=== PATIENT | female | born 1940 | race Caucasian/White ===

== ENCOUNTER 2019-04-13 16:28 | Emergency (ER) | payer MEDICARE ==
[2019-04-13] MEDS ORDERED: NS 0.9% 1000 ML** 1,000 ML IV ONE (20:01)
--- NOTE | 2019-04-13 20:03 | ED ---
Abdominal Pain/Female - HPI Summary HPI Summary: 78 year old female presents to the ED with a chief complaint of a mass on her abdomen that she noticed 5 months ago but has gotten bigger and has become painful in the last month. The pain is dull with a severity of 2/10. She saw a gerontologist yesterday for the mass but received no diagnosis. She had an ultrasound this morning and was told to come to [facility]. She denies N/V/D, fever , weight loss, diaphoresis, and difficulty urinating. History of bladder incontinence. - History of Current Complaint Chief Complaint: EDAbdPain Stated Complaint: BUMP ON GROIN AREA PER Time Seen by Provider: 04/13/19 19:49 Hx Obtained From: Patient ?: No Onset/Duration: Lasting Weeks, Still Present, Worse Since - 1 month ago, pain developed Timing: Weeks Severity Initially: Mild Severity Currently: None Pain Intensity: 2 Pain Scale Used: 0-10 Numeric Location: Discrete At: RLQ Radiates: No Character: Dull Associated Signs and Symptoms: Negative: Diaphoresis, Fever, Urinary Symptoms, Nausea, Vomiting, Diarrhea, Other: - Denies weight loss Allergies/Adverse Reactions: Allergies Allergy/AdvReac Type Severity Reaction Status Date / Time diphenhydramine Allergy See Comment Verified 04/13/19 16:35 [From Benadryl] Sulfa (Sulfonamide Allergy See Comment Verified 04/13/19 16:35 Antibiotics) Home Medications: Home Medications Apixaban [Eliquis] 5 mg PO DAILY 04/13/19 [History Confirmed 04/13/19] Losartan TAB* [Cozaar TAB*] 50 mg PO QAM 04/13/19 [History Confirmed 04/13/19] Magnesium Oxide [Magnesium] 250 mg PO DAILY 04/13/19 [History Confirmed 04/13/19 ] Mirabegron (NF) [Myrbetriq (NF)] 25 mg PO DAILY 04/13/19 [History Confirmed 01/22] Omeprazole (Nf) [Prilosec (NF)] 40 mg PO DAILY 04/13/19 [History Confirmed 04/13] Oxybutynin XL TAB* [Ditropan XL TAB*] 15 mg PO DAILY 04/13/19 [History Confirmed 04/13/19] Potassium Chloride 10 meq PO DAILY 04/13/19 [History Confirmed 04/13/19] Sertraline* [Zoloft*] 50 mg PO DAILY 04/13/19 [History Confirmed 04/13/19] Simvastatin (NF) [Zocor (NF)] 40 mg PO DAILY 04/13/19 [History Confirmed ] amLODIPine TAB* [Norvasc 5 mg TAB*] 5 mg PO DAILY 04/13/19 [History Confirmed ] PMH/Surg Hx/FS Hx/Imm Hx History: Reports: Other Problems/Disorders - urinary incontinence - Surgical History Surgery Procedure, Year, and Place: HYSTERECTOMY '81 W/APPY Infectious Disease History: No Infectious Disease History: Denies: Traveled Outside the [place] in Last 30 Days - Social History Alcohol Use: None Substance Use Type: Reports: None Smoking Status (MU): Former Smoker Review of Systems - ROS Summary Review of Systems Summary: Home Medications Medication Instructions Recorded Confirmed Type Furosemide TAB* 11/05/14 11/05/14 History Omeprazole CAP* 11/05/14 11/05/14 History Potassium Chlor TAB* 11/05/14 11/05/14 History Simvastatin 11/05/14 11/05/14 History amLODIPine TAB* 11/05/14 11/05/14 History Negative: Fever, Skin Diaphoresis Positive: Abdominal Pain. Negative: Vomiting, Diarrhea, Nausea Positive: no symptoms reported All Other Systems Reviewed And Are Negative: Yes Physical Exam - Summary Physical Exam Summary: General: Well-developed, Obese, elderly female. No acute distress. HEENT: Normocephalic, Atraumatic. Eyes: Conjuctiva normal, PERRL. Ears: TMs within normal limits. Nares: (-) discharge, (-) erythema. Oropharynx: Clear, mucous membranes moist, (-) exudates. Neck: Soft, FROM, (-) lymphadenopathy, (-) thyromegaly, (-) JVD. Cardiovascular: Normal sinus rhythm, (-) murmur. Lungs: Clear to auscultation bilaterally (-) wheezes, (-) rales, (-) rhonchi. Abdomen: Soft, non-distended, (-) organomegaly, normal bowel sounds. Mild tenderness in the right middle abdomen. Back: (-) CVA tenderness Extremities: No edema. Skin: Warm, dry, (-) rash. Neuro: Alert and oriented x3, no focal deficits. Psychiatric: Mood normal, affect normal. Triage Information Reviewed: Yes Vital Signs On Initial Exam: Initial Vitals Temp Pulse Resp BP Pulse Ox 98.3 F 71 16 147/89 95 04/13/19 16:34 04/13/19 16:34 04/13/19 16:34 04/13/19 16:34 04/13/19 16:34 Vital Signs Reviewed: Yes Procedures - Sedation Patient Received Moderate/Deep Sedation with Procedure: No Diagnostics - Vital Signs Vital Signs Temp Pulse Resp BP Pulse Ox 04/13/19 18:41 97.5 F 64 18 155/79 96 04/13/19 16:34 98.3 F 71 16 147/89 95 - Laboratory Result Diagrams: 04/13/19 20:32 04/13/19 20:32 Lab Statement: Any lab studies that have been ordered have been reviewed, and results considered in the medical decision making process. - CT CT Abd CT Interpretation Completed By: Radiologist Summary of CT Findings: The following impressions were made: 1. Periumbilical hernia containing fat. Inflammatory changes within the fat in the periumbilical hernia and in the mesentery/omentum at the base of the hernia. This may represent mesenteric ischemia or inflammation. No walled off fluid collection. 2. No inguinal hernia. Multiple inguinal lymph nodes. No inflammatory changes. An ED physician has reviewed this report. Abdominal Pain Fem Course/Dx - Diagnoses Provider Diagnoses: Periumbilical hernia - Provider Notifications Discussed Care Of Patient With: Dov Peña - Surgery Time Discussed With Above Provider: 23:00 Instructed by Provider To: Other - Spoke to Dr. Peña at 2300. He recommended that the patient follow up with him in the next few days. Discharge ED - Sign-Out/Discharge Documenting (check all that apply): Patient Departure - Discharge - Discharge Plan Condition: Stable Disposition: HOME Patient Education Materials: Umbilical Hernia (ED) Referrals: Dov Peña MD [Medical Doctor] - Additional Instructions: Follow up with Dr. Peña, Surgery, in 2-3 days. Return to the Emergency Department if you experience new or worsening symptoms. - Billing Disposition and Condition Condition: STABLE Disposition: Home - Attestation Statements Document Initiated by Scribe: Yes Documenting Scribe: Brandon Mendoza Provider For Whom Scribe is Documenting (Include Credential): Mirtha Shen MD. Scribe Attestation: Brandon Berman, scribed for Mirtha Shen MD. on 04/14/19 at 0218. Scribe Documentation Reviewed: Yes Provider Attestation: The documentation as recorded by the scribe, Brandon Mendoza accurately reflects the service I personally performed and the decisions made by me, Mirtha Shen MD. Status of Scribe Document: Viewed
[2019-04-13 20:40] LABS: ABS Eosinophils 0.2 10^3/ul (0-0.6); ABS Lymphocytes 2.1 10^3/ul (1.0-4.8); ABS Monocytes 0.5 10^3/ul (0-0.8); Eosinophil % 3.1 %; Hematocrit 39 % (35-47); Hemoglobin 13.1 g/dL (12.0-16.0); Lymphocyte % 35.6 %; Mean Corpuscular HGB Conc 34 g/dL (31-36); Mean Corpuscular Hemoglobin 30 pg (27-31); Mean Corpuscular Volume 89 fL (80-97); Mean Platelet Volume 7.5 fL (7.4-10.4); Platelet Count 214 10^3/uL (150-450); Red Blood Count 4.35 10^6 /uL (3.70-4.87); Red Cell Distribution Width 14 % (10-15); White Blood Count 5.8 10^3/uL (3.5-10.8)
[2019-04-13 20:54] LABS: Albumin 4.5 g/dL (3.2-5.2); Albumin/Globulin Ratio 1.5 (1-3); BUN/Creatinine Ratio 16.2 (8-20); Calcium 9.7 mg/dL (8.6-10.3); EGFR African American 65.8 (>60); EGFR Non-African American 54.4 (>60); Potassium 3.9 mmol/L (3.5-5.0); Total Bilirubin 0.6 mg/dL (0.2-1.0); Total Protein 7.5 g/dL (6.4-8.9)
[2019-04-13 20:55] LABS: INR 1.2 (0.82-1.09)
[2019-04-13] MEDS ORDERED: Iodixanol* (CONTRAST) 320 MG/ML 100 ML SDV IV ONE (21:24)
[2019-04-13 22:47] LABS: Urine Appearance Clear; Urine Bilirubin Negative (Negative); Urine Blood Negative (Negative); Urine Color Straw; Urine Glucose Negative (Negative); Urine Ketones Negative (Negative); Urine Nitrite Negative (Negative); Urine Protein Negative (Negative); Urine Specific Gravity 1.006 (1.010-1.030); Urine Urobilinogen Negative (Negative)
[2019-04-13 23:28] VITALS: BP 169/99
[2019-04-14] MEDS ORDERED: amLODIPine TAB* 5 MG PO SCH (09:00)
[2019-04-14] MEDS ORDERED: Losartan TAB* 25 MG PO SCH (09:00)
[2019-04-14] MEDS ORDERED: Sertraline* 50 MG TAB PO SCH (09:00)
[2019-04-14] MEDS ORDERED: Mirabegron (NF) 25 MG TAB PO SCH (09:00)
[2019-04-14] MEDS ORDERED: Pantoprazole TAB * 40 MG TAB PO SCH (09:00)
[2019-04-14] MEDS ORDERED: NON FORMULARY MED* (Apixaban [Eliquis] 5 MG) PO SCH (09:00)
[2019-04-14] MEDS ORDERED: Potassium Chlor TAB* 10 MEQ TAB.ER PO SCH (09:00)
[2019-04-14] MEDS ORDERED: Atorvastatin* 20 MG TAB PO SCH (09:00)
[2019-04-14] MEDS ORDERED: Oxybutynin XL TAB* 5 MG PO SCH (09:00)
[2019-04-14] MEDS ORDERED: NON FORMULARY MED* (Magnesium Oxide [Magnesium] 250 MG) PO SCH (09:00)
== END 2019-04-13 23:39 | disposition home or self-care (01) ==
LOC: ED 16:28
DX: K42.9 Umbilical hernia without obstruction or gangrene (principal); Z90.710 Acquired absence of both cervix and uterus; Z79.01 Long term (current) use of anticoagulants; Z79.899 Other long term (current) drug therapy; Z88.2 Allergy status to sulfonamides; Z88.8 Allergy status to other drugs, medicaments and biological substances
CPT/HCPCS: 36415; 74177; 80053; 81003; 83605; 85025; 85610; 96360; 96361; 99283; Q9967

== ENCOUNTER → 2019-05-11 10:27 | Day surgery (SDC) | payer MEDICARE ==
[~2019-05-11 10:27] MED LIST: Acetaminophen TAB* 325 MG ONE; Acetaminophen TAB* 325 MG PO ONE; Bacitracin OINTMENT* 0.5% 0.5 oz TUBE ONE; Buffered Lidocaine 1% SYRIN* 1 ML/SYRINGE INTRADERM ONE; Bupivacaine 0.25% EPI 200,000* 30 ML SDV ONE; Dexamethasone IV* 4 MG/ML 1 ML (4 MG) ONE; HYDROmorphone INJ1* 1 MG/ML SYRINGE IV PRN; HYDROmorphone INJ1* 1 MG/ML SYRINGE ONE; Ketorolac INJ* 30 MG/ML 1 ML VIAL ONE; Lactated Ringers 1000 ML Bag* 1,000 ML IV SCH; Metoprolol Tartrate IV* 1 MG/ML 5 ML VIAL ONE; Midazolam* 1 MG/ML 5 ML VIAL (5 MG) ONE; Naloxone* 0.4 MG/ML 1 ML VIAL IV PRN; Ondansetron INJ* 2 MG/ML VIAL IV PRN; Ondansetron INJ* 2 MG/ML VIAL ONE; PROCHLORPERAZINE INJ 5 MG/ML 2 ML VIAL IV PRN; ceFAZolin 2 GM PREMIX in ORs 2 GM/50 ML BAG ONE; fentaNYL* 50 MCG/ML 2 ML VIAL (100 MCG VIAL) ONE; oxyCODONE TAB* 5 MG TAB PO PRN
[2019-05-11 17:35] VITALS: BP 137/66
--- NOTE | 2019-05-12 05:07 | OP ---
AMENDED REPORT TO CORRECT DATE OF OPERATION CC: Dr. Bloom * DATE OF OPERATION: 05/11/19 - [facility] DATE OF : 42 SURGEON: Dov Peña MD INSTALLER TECHNICIAN: Keiry Helm NP ANESTHESIA: General. PRE-OP DIAGNOSIS: Ventral hernia. POST-OP DIAGNOSES: Incisional hernia and umbilical hernia. OPERATIVE PROCEDURE: Open repair of umbilical hernia primarily and incisional hernia repair with mesh. ESTIMATED BLOOD LOSS: Less than 100 cc. FLUIDS: Crystalloid fluid given. Please see Anesthesia report for details. SPECIMEN: Hernia sac. DRAINS: A #7 STAN drain left in the subcutaneous space. COMPLICATIONS: None. DESCRIPTION OF PROCEDURE: The patient was identified in the preoperative area. She was marked appropriately. Consent was signed and she was taken to the operating room and placed on the operating table in the supine position. Preoperative antibiotics were given. Sequential devices were placed on bilateral lower extremities and general anesthesia was induced. The patient's abdomen was prepped and draped in a standard surgical fashion. A time-out was performed. An infraumbilical incision was made. This was deepened down to the root of the umbilicus. The umbilicus skin was isolated and incised off of a small hernia defect. We then were able to extend the dissection inferior to this and a hernia was identified. Hernia sac was isolated from the surrounding subcutaneous fat. It was opened up and omentum was observed. With some difficulty, the omentum was reduced back into the abdomen. There was some bleeding from the omentum during this portion of case. Once the omentum was reduced, the hernia defect was approximately just under 2 cm. Flaps were made laterally and the plan was for mesh repair with primary closure of the fascia. A 4.3-cm plug was opened up. This 2-layer mesh was then placed in the abdomen in the appropriate fashion. Tails were sutured laterally with 0 Vicryl sutures and then the defect was reapproximated with three interrupted Prolene sutures. The umbilical defect, which was just under 1 cm was closed with single Prolene suture. The Prolenes were all #1. The wound was then irrigated. Hemostasis was achieved and the umbilical skin was tacked down with 2-0 Vicryl suture and a #7 STAN drain was brought in through a separate stab incision due to the extent of the dissection to clear away this incisional hernia. The skin was closed with 3-0 Vicryl followed by 4-0 Monocryl subcuticular sutures. Steri-Strips and sterile dressing were applied. The patient tolerated the procedure well and was transferred to the PACU in stable condition. [id number]/[facility] #: [id number] MTDD
== END | disposition home or self-care (01) ==
LOC: OR 10:27
PROVIDERS: ATTEND Surgery
DX: K43.2 Incisional hernia without obstruction or gangrene (principal); I48.0 Paroxysmal atrial fibrillation; I10 Essential (primary) hypertension; J44.9 Chronic obstructive pulmonary disease, unspecified; Z87.891 Personal history of nicotine dependence; K21.9 Gastro-esophageal reflux disease without esophagitis; I77.810 Thoracic aortic ectasia; Z79.01 Long term (current) use of anticoagulants; R06.02 Shortness of breath
CPT/HCPCS: 88302; 93005; A9270-GY; C1781; J0690; J1100; J1170; J1885; J2250; J2405; J3010; J3490

== ENCOUNTER 2021-04-12 13:12 | Inpatient (IN) ==
[2021-04-12] MEDS ORDERED: NS 0.9% 1000 ml BAG 1,000 ML IV.FLUID IV ONE (13:56)
[2021-04-12] MEDS ORDERED: methylPREDNISolone 125 mg 2 ML VIAL IV ONE (14:15)
[2021-04-12] MEDS ORDERED: Albuterol HFA INHALER 8 gm MDI INH ONE (14:17)
[2021-04-12] MEDS ORDERED: Piperacillin/Tazobac ADVAN 3.375 GM in NS 0.9% 100 ml BAG 100 ML IV ONE (14:34)
[2021-04-12 14:43] LABS: ABS Lymphocytes 0.8 10^3/ul (1.0-4.8); ABS Monocytes 1.1 10^3/ul (0-0.8); ABS Neutrophils 6.8 10^3/ul (1.5-7.7); Eosinophil % 0.1 %; Hematocrit 41 % (35-47); Hemoglobin 14.1 g/dL (12.0-16.0); Lymphocyte % 8.8 %; Mean Corpuscular HGB Conc 34 g/dL (31-36); Mean Corpuscular Hemoglobin 30 pg (27-31); Mean Corpuscular Volume 89 fL (80-97); Mean Platelet Volume 8.8 fL (7.4-10.4); Platelet Count 128 10^3/uL (150-450); Red Blood Count 4.64 10^6 /uL (3.70-4.87); Red Cell Distribution Width 14 % (10-15); White Blood Count 8.6 10^3/uL (3.5-10.8)
[2021-04-12 14:53] LABS: Influenza A Molecular Negative (Negative); Influenza B Molecular Negative (Negative); Rapid COVID-19 Molecular Undetected (Undetected)
[2021-04-12 14:56] LABS: ALT 14 U/L (7-52); Albumin 4.2 g/dL (3.2-5.2); Albumin/Globulin Ratio 1.1 (1-3); Alkaline Phosphatase 40 U/L (35-149); Blood Urea Nitrogen 18 mg/dL (6-24); C Reactive Protein 235.76 mg/L (<8.01); CO2 Carbon Dioxide 18 mmol/L (22-32); Chloride 98 mmol/L (101-111); Globulin 3.8 g/dL (2-4); Glucose 143 mg/dL (70-100); Sodium 132 mmol/L (135-145)
[2021-04-12 14:57] LABS: Activated Partial Thrombo Time 35.7 seconds (26.0-38.0); INR 1.99 (0.86-1.15)
[2021-04-12 15:00] LABS: AST 23 U/L (13-39); Anion Gap 16 mmol/L (2-11); Potassium 3.5 mmol/L (3.5-5.0)
[2021-04-12 15:03] LABS: Troponin I 0.27 ng/mL (<0.03)
[2021-04-12 15:07] LABS: Lipase < 10 U/L (11.0-82.0)
[2021-04-12] MEDS ORDERED: Iodixanol (CONTRAST) 320 MG/ML 100 ML SDV IV ONE (15:12)
[2021-04-12 16:43] LABS: Troponin I 0.22 ng/mL (<0.03)
[2021-04-12 18:00] LABS: Urine Appearance Clear; Urine Bacteria Absent (Absent); Urine Bilirubin Negative (Negative); Urine Blood Negative (Negative); Urine Color Yellow; Urine Glucose Negative (Negative); Urine Ketones Trace (Negative); Urine Nitrite Negative (Negative); Urine Protein 2+(100 mg/dL) (Negative); Urine Red Blood Cell Absent (Absent); Urine Urobilinogen Negative (Negative); Urine White Blood Cell Absent (Absent)
[2021-04-12] MEDS ORDERED: Heparin DRIP 25,000 UNITS BAG 25,000 UNITS/500 ML BAG IV SCH (18:00)
[2021-04-12] MEDS ORDERED: Zosyn per Pharmacy NOTE FOLLOW UP SCH (18:00)
[2021-04-12] MEDS ORDERED: PTO: Mirabegron 25 mg ER TAB (NF) PO SCH (18:00)
[2021-04-12 18:01] LABS: Urine Specific Gravity > 1.060 (1.002-1.030)
[2021-04-12] MEDS ORDERED: TAZOBACTAM IV ONE (19:00)
[2021-04-12] MEDS ORDERED: PIPERACILLIN IV ONE (19:00)
[2021-04-12] MEDS ORDERED: [UNRECOGNIZED DRUG - OTHER] IV ONE (19:00)
[2021-04-12] MEDS: Heparin 5000 UNITS/ML 1 mL VIAL IV SCH (19:15)
[2021-04-12 20:08] LABS: Blood Urea Nitrogen 19 mg/dL (6-24)
[2021-04-12] MEDS ORDERED: ZOSYN 3.375 GM Q8H per EXTENDED INFUSION IV SCH (20:30)
[2021-04-12] MEDS ORDERED: Mometasone/Formoter 200/5 MDI INH SCH (21:00)
[2021-04-12] MEDS ORDERED: Lactated Ringers 500 ml BAG 500 ML IV ONE (21:46)
[2021-04-12] MEDS ORDERED: Lactated Ringers 1000 ml BAG 1,000 ML IV SCH (22:00)
[2021-04-13 00:22] LABS: Troponin I 0.16 ng/mL (<0.03)
[2021-04-13] MEDS: Heparin 5000 UNITS/ML 1 mL VIAL IV SCH (00:38)
[2021-04-13] MEDS ORDERED: Lactated Ringers 500 ml BAG 500 ML IV ONE (01:01)
[2021-04-13] MEDS ORDERED: NS 0.9% 1000 ml BAG 1,000 ML IV SCH (02:30)
[2021-04-13 05:40] LABS: ABS Lymphocytes 0.4 10^3/ul (1.0-4.8); ABS Monocytes 0.2 10^3/ul (0-0.8); ABS Neutrophils 4.4 10^3/ul (1.5-7.7); Hematocrit 33 % (35-47); Hemoglobin 11.3 g/dL (12.0-16.0); Lymphocyte % 8.4 %; Mean Corpuscular HGB Conc 34 g/dL (31-36); Mean Corpuscular Hemoglobin 30 pg (27-31); Mean Corpuscular Volume 89 fL (80-97); Mean Platelet Volume 8.9 fL (7.4-10.4); Platelet Count 106 10^3/uL (150-450); Red Blood Count 3.72 10^6 /uL (3.70-4.87); Red Cell Distribution Width 14 % (10-15); White Blood Count 5.1 10^3/uL (3.5-10.8)
[2021-04-13 05:55] LABS: Blood Urea Nitrogen 24 mg/dL (6-24); CO2 Carbon Dioxide 21 mmol/L (22-32); Calcium 7.7 mg/dL (8.6-10.3); Chloride 107 mmol/L (101-111); Glucose 208 mg/dL (70-100); Sodium 134 mmol/L (135-145)
[2021-04-13 06:07] LABS: Anion Gap 6 mmol/L (2-11)
[2021-04-13 06:45] LABS: Phosphorus 2.1 mg/dL (2.5-5.0); Potassium Redraw 3.3 mmol/L (3.5-5.0)
[2021-04-13] MEDS: PTO: Budesonide/Formote 160/4.5(NF) MDI INH SCH ×2 (06:48→19:41)
[2021-04-13] MEDS ORDERED: Potassium Phosphate IV 15 MMOLE in NS 0.9% 250 ml 250 ML IVPB ONE (07:40)
[2021-04-13] MEDS: ZOSYN 3.375 GM Q8H per EXTENDED INFUSION IV SCH ×3 (08:22→21:30)
[2021-04-13] MEDS: KCL 20 MEQ/100 ML IVPREMIX 20 MEQ/100 ML BAG IV SCH ×2 (08:22→10:37)
[2021-04-13 15:21] LABS: Urine Appearance Clear; Urine Bilirubin Negative (Negative); Urine Blood 1+ (Negative); Urine Color Yellow; Urine Glucose Negative (Negative); Urine Ketones Negative (Negative); Urine Nitrite Negative (Negative); Urine Protein Negative (Negative); Urine Specific Gravity 1.029 (1.002-1.030); Urine Urobilinogen Negative (Negative)
[2021-04-13 15:25] LABS: Urine Amorphous Crystals Present (Absent); Urine Bacteria Absent (Absent); Urine Red Blood Cell 2+(6-10/hpf) (Absent); Urine Squamous Epithelial Cell Present (Absent); Urine White Blood Cell Trace(0-5/hpf) (Absent)
[2021-04-13] MEDS: Enoxaparin 100 MG/ML SYR SUBCUT SCH (17:24)
[2021-04-14 05:17] LABS: ABS Lymphocytes 0.8 10^3/ul (1.0-4.8); ABS Monocytes 0.6 10^3/ul (0-0.8); ABS Neutrophils 5.2 10^3/ul (1.5-7.7); Hematocrit 32 % (35-47); Hemoglobin 10.6 g/dL (12.0-16.0); Lymphocyte % 12.6 %; Mean Corpuscular HGB Conc 34 g/dL (31-36); Mean Corpuscular Hemoglobin 30 pg (27-31); Mean Corpuscular Volume 89 fL (80-97); Mean Platelet Volume 8.6 fL (7.4-10.4); Platelet Count 113 10^3/uL (150-450); Red Blood Count 3.53 10^6 /uL (3.70-4.87); Red Cell Distribution Width 14 % (10-15); White Blood Count 6.6 10^3/uL (3.5-10.8)
[2021-04-14 05:34] LABS: Calcium 7.4 mg/dL (8.6-10.3); Phosphorus 2.3 mg/dL (2.5-5.0); Potassium 3.9 mmol/L (3.5-5.0)
[2021-04-14] MEDS ORDERED: Potassium Phosphate IV 15 MMOLE in NS 0.9% 250 ml 250 ML IVPB ONE (05:54)
[2021-04-14] MEDS: ZOSYN 3.375 GM Q8H per EXTENDED INFUSION IV SCH ×3 (06:14→22:29)
[2021-04-14] MEDS: Enoxaparin 100 MG/ML SYR SUBCUT SCH ×2 (06:43→15:21)
[2021-04-14] MEDS: PTO: Albuterol HFA INHALER 8 gm MDI INH PRN ×2 (07:40→13:50)
[2021-04-14] MEDS: PTO: Budesonide/Formote 160/4.5(NF) MDI INH SCH ×2 (07:40→19:50)
[2021-04-14] MEDS ORDERED: Morphine 2 MG/ML SYRINGE ONE (15:35)
[2021-04-14] MEDS ORDERED: Morphine 2 MG/ML SYRINGE IV ONE (15:37)
[2021-04-14 16:23] LABS: Troponin I 0.03 ng/mL (<0.03)
[2021-04-14 18:22] LABS: Troponin I 0.03 ng/mL (<0.03)
[2021-04-14] MEDS ORDERED: NS 0.9% 100 ml BAG 100 ML ONE (22:10)
[2021-04-15] MEDS: PTO: Albuterol HFA INHALER 8 gm MDI INH PRN ×2 (02:15→09:26)
[2021-04-15] MEDS ORDERED: NS 0.9% 100 ml BAG 100 ML ONE ×2 (04:21→21:22)
[2021-04-15] MEDS: Enoxaparin 100 MG/ML SYR SUBCUT SCH ×2 (04:24→17:47)
[2021-04-15] MEDS: ZOSYN 3.375 GM Q8H per EXTENDED INFUSION IV SCH ×3 (04:26→21:28)
[2021-04-15 05:12] LABS: ABS Eosinophils 0.1 10^3/ul (0-0.6); ABS Lymphocytes 0.9 10^3/ul (1.0-4.8); ABS Monocytes 0.7 10^3/ul (0-0.8); ABS Neutrophils 4.5 10^3/ul (1.5-7.7); Hematocrit 31 % (35-47); Hemoglobin 10.7 g/dL (12.0-16.0); Lymphocyte % 14.1 %; Mean Corpuscular HGB Conc 34 g/dL (31-36); Mean Corpuscular Hemoglobin 31 pg (27-31); Mean Corpuscular Volume 90 fL (80-97); Mean Platelet Volume 8.8 fL (7.4-10.4); Platelet Count 139 10^3/uL (150-450); Red Blood Count 3.49 10^6 /uL (3.70-4.87); Red Cell Distribution Width 14 % (10-15); White Blood Count 6.2 10^3/uL (3.5-10.8)
[2021-04-15 05:49] LABS: Calcium 8.2 mg/dL (8.6-10.3); Magnesium 1.8 mg/dL (1.9-2.7); Phosphorus 2.5 mg/dL (2.5-5.0); Potassium 3.8 mmol/L (3.5-5.0)
[2021-04-15] MEDS ORDERED: Magnesium Sulfate 2 gm BAG 2 GM/50 ML BAG IVPB ONE (07:08)
[2021-04-15] MEDS: PTO: Budesonide/Formote 160/4.5(NF) MDI INH SCH ×2 (09:26→19:32)
[2021-04-15] MEDS: PTO: Mirabegron 25 mg ER TAB (NF) PO SCH (21:28)
[2021-04-16 04:17] LABS: Hematocrit 33 % (35-47); Hemoglobin 11.1 g/dL (12.0-16.0); Mean Corpuscular HGB Conc 34 g/dL (31-36); Mean Corpuscular Hemoglobin 30 pg (27-31); Mean Corpuscular Volume 89 fL (80-97); Mean Platelet Volume 8.2 fL (7.4-10.4); Platelet Count 175 10^3/uL (150-450); Red Blood Count 3.69 10^6 /uL (3.70-4.87); Red Cell Distribution Width 14 % (10-15); White Blood Count 8.5 10^3/uL (3.5-10.8)
[2021-04-16 04:35] LABS: Calcium 8.7 mg/dL (8.6-10.3); Magnesium 1.8 mg/dL (1.9-2.7); Phosphorus 3.4 mg/dL (2.5-5.0); Potassium 3.9 mmol/L (3.5-5.0)
[2021-04-16] MEDS ORDERED: NS 0.9% 100 ml BAG 100 ML ONE (05:14)
[2021-04-16] MEDS: ZOSYN 3.375 GM Q8H per EXTENDED INFUSION IV SCH ×2 (05:17→12:01)
[2021-04-16] MEDS: Enoxaparin 100 MG/ML SYR SUBCUT SCH ×2 (05:17→16:39)
[2021-04-16] MEDS ORDERED: Magnesium Sulfate 2 gm BAG 2 GM/50 ML BAG IVPB ONE (06:25)
[2021-04-16 07:19] LABS: ABS Eosinophils 0.1 10^3/ul (0-0.6); ABS Lymphocytes 0.9 10^3/ul (1.0-4.8); ABS Monocytes 0.8 10^3/ul (0-0.8); ABS Neutrophils 6.7 10^3/ul (1.5-7.7); Eosinophil % 1.2 %; Lymphocyte % 10.5 %
[2021-04-16] MEDS: PTO: Mirabegron 25 mg ER TAB (NF) PO SCH (07:31)
[2021-04-16] MEDS: PTO: Budesonide/Formote 160/4.5(NF) MDI INH SCH ×2 (08:03→20:06)
[2021-04-17] MEDS: Enoxaparin 100 MG/ML SYR SUBCUT SCH ×2 (04:07→16:24)
[2021-04-17] MEDS: PTO: Budesonide/Formote 160/4.5(NF) MDI INH SCH ×2 (08:11→21:05)
[2021-04-17] MEDS: PTO: Mirabegron 25 mg ER TAB (NF) PO SCH (08:45)
[2021-04-17 08:53] LABS: Calcium 8.9 mg/dL (8.6-10.3); Magnesium 1.9 mg/dL (1.9-2.7); Phosphorus 3.7 mg/dL (2.5-5.0); Potassium 3.4 mmol/L (3.5-5.0)
[2021-04-17] MEDS: KCL 20 MEQ/100 ML IVPREMIX 20 MEQ/100 ML BAG IV SCH ×3 (11:05→15:36)
[2021-04-17 11:31] LABS: C Reactive Protein 132.25 mg/L (<8.01)
[2021-04-18] MEDS: Enoxaparin 100 MG/ML SYR SUBCUT SCH ×2 (04:37→17:39)
[2021-04-18 06:41] LABS: ABS Basophils 0.1 10^3/ul (0-0.2); ABS Eosinophils 0.2 10^3/ul (0-0.6); ABS Lymphocytes 1.2 10^3/ul (1.0-4.8); ABS Monocytes 0.9 10^3/ul (0-0.8); ABS Neutrophils 5.6 10^3/ul (1.5-7.7); Eosinophil % 2.1 %; Hematocrit 37 % (35-47); Hemoglobin 12.4 g/dL (12.0-16.0); Lymphocyte % 15.4 %; Mean Corpuscular HGB Conc 34 g/dL (31-36); Mean Corpuscular Hemoglobin 30 pg (27-31); Mean Corpuscular Volume 90 fL (80-97); Mean Platelet Volume 7.8 fL (7.4-10.4); Platelet Count 228 10^3/uL (150-450); Red Blood Count 4.09 10^6 /uL (3.70-4.87); Red Cell Distribution Width 14 % (10-15); White Blood Count 7.9 10^3/uL (3.5-10.8)
[2021-04-18 07:08] LABS: Albumin 3.4 g/dL (3.2-5.2); Calcium 9.1 mg/dL (8.6-10.3); Globulin 3.5 g/dL (2-4); Potassium 3.7 mmol/L (3.5-5.0); Total Bilirubin 0.8 mg/dL (0.2-1.0); Total Protein 6.9 g/dL (6.4-8.9)
[2021-04-18] MEDS: PTO: Budesonide/Formote 160/4.5(NF) MDI INH SCH ×2 (09:03→20:59)
[2021-04-18] MEDS: PTO: Albuterol HFA INHALER 8 gm MDI INH PRN (09:07)
[2021-04-18] MEDS: PTO: Mirabegron 25 mg ER TAB (NF) PO SCH (10:02)
[2021-04-18 17:59] LABS: Erythrocyte Sed Rate 13 mm/Hr (0-29)
[2021-04-19] MEDS: Enoxaparin 100 MG/ML SYR SUBCUT SCH ×2 (04:56→17:12)
[2021-04-19 06:28] LABS: ABS Eosinophils 0.1 10^3/ul (0-0.6); ABS Lymphocytes 1.1 10^3/ul (1.0-4.8); ABS Monocytes 0.8 10^3/ul (0-0.8); ABS Neutrophils 5.2 10^3/ul (1.5-7.7); Eosinophil % 1.9 %; Hematocrit 37 % (35-47); Hemoglobin 12.6 g/dL (12.0-16.0); Lymphocyte % 14.7 %; Mean Corpuscular HGB Conc 35 g/dL (31-36); Mean Corpuscular Hemoglobin 31 pg (27-31); Mean Corpuscular Volume 89 fL (80-97); Mean Platelet Volume 7.4 fL (7.4-10.4); Nucleated Red Blood Cells % 0.1; Platelet Count 230 10^3/uL (150-450); Red Cell Distribution Width 14 % (10-15); White Blood Count 7.2 10^3/uL (3.5-10.8)
[2021-04-19 06:46] LABS: Calcium 9.2 mg/dL (8.6-10.3); Potassium 3.7 mmol/L (3.5-5.0)
[2021-04-19] MEDS: PTO: Mirabegron 25 mg ER TAB (NF) PO SCH (08:08)
[2021-04-19] MEDS: PTO: Budesonide/Formote 160/4.5(NF) MDI INH SCH ×2 (08:37→19:42)
[2021-04-19 09:01] LABS: C Reactive Protein 64.91 mg/L (<8.01)
[2021-04-20] MEDS: Enoxaparin 100 MG/ML SYR SUBCUT SCH ×2 (05:53→16:48)
[2021-04-20] MEDS: PTO: Budesonide/Formote 160/4.5(NF) MDI INH SCH ×2 (07:53→20:56)
[2021-04-20] MEDS: PTO: Mirabegron 25 mg ER TAB (NF) PO SCH (11:04)
[2021-04-21] MEDS: Enoxaparin 100 MG/ML SYR SUBCUT SCH ×2 (05:27→15:58)
[2021-04-21] MEDS: PTO: Budesonide/Formote 160/4.5(NF) MDI INH SCH ×2 (07:05→19:58)
[2021-04-21] MEDS: PTO: Mirabegron 25 mg ER TAB (NF) PO SCH ×2 (08:57→20:19)
[2021-04-22] MEDS: Enoxaparin 100 MG/ML SYR SUBCUT SCH (05:22)
[2021-04-22] MEDS: PTO: Budesonide/Formote 160/4.5(NF) MDI INH SCH (07:09)
[2021-04-22] MEDS: PTO: Mirabegron 25 mg ER TAB (NF) PO SCH (08:34)
[2021-04-22 13:33] VITALS: BP 138/71
== END 2021-04-22 15:15 | disposition home health service (06) | DRG 175 ==
LOC: ED 13:12 → SUATTDRO 20:11 → ICU 20:11 → MEDTELE 04-16 14:46
PROVIDERS: ADMIT Internal Medicine; ATTEND Internal Medicine

== ENCOUNTER 2022-12-07 12:55 | Inpatient (IN) ==
[2022-12-07 14:41] LABS: ABS Eosinophils 0.1 10^3/uL (0.0-0.5); ABS Lymphocytes 1.1 10^3/uL (1.0-4.8); ABS Monocytes 0.5 10^3/uL (0.0-0.9); ABS Neutrophils 4.3 10^3/uL (1.5-7.6); ABS Nucleated RBC 0.01 10^3/ul; Eosinophil % 1.5 %; Hematocrit 31.8 % (35-45); Hemoglobin 10.6 g/dL (11.5-14.3); Lymphocyte % 18.3 %; Mean Corpuscular Hgb Conc 33.2 g/dL (31-36); Mean Corpuscular Volume 84.3 fL (80-97); Mean Platelet Volume 8.1 fL (7.5-11.2); Nucleated Red Blood Cells % 0.2 /100 WBC (0.0-0.4); Platelet Count 148 10^3/uL (150-450); Red Blood Count 3.78 10^6/uL (3.63-4.92); Red Cell Distribution Width 15.6 % (12-17)
[2022-12-07 14:45] LABS: INR 2.05 (0.88-1.18)
[2022-12-07 14:56] LABS: ALT 14 U/L (7-52); AST 15 U/L (13-39); Albumin 4.3 g/dL (3.2-5.2); Albumin/Globulin Ratio 1.7 (1-3); Alkaline Phosphatase 46 U/L (35-149); Anion Gap 7 mmol/L (2-16); Blood Urea Nitrogen 16 mg/dL (6-24); CO2 Carbon Dioxide 22 mmol/L (22-32); Calcium 9.6 mg/dL (8.6-10.3); Chloride 109 mmol/L (101-111); Creatinine, Serum 0.79 mg/dL (0.51-0.95); Globulin 2.6 g/dL (2-4); Glucose 112 mg/dL (70-100); Potassium 4.2 mmol/L (3.5-5.0); Sodium 138 mmol/L (135-145); Total Protein 6.9 g/dL (6.4-8.9); eGFR CKD-EPI 75.1 (>60)
[2022-12-07 15:02] LABS: High Sens Troponin Baseline 6 pg/mL (<15)
[2022-12-07] MEDS ORDERED: Iohexol 350 (CONTRAST) 500 ML MDV IV ONE (15:26)
[2022-12-07 15:47] LABS: High Sensitivity Troponin 1 Hr 6 pg/mL (<15)
[2022-12-07 17:06] LABS: Lipase < 10 U/L (11.0-82.0)
[2022-12-07] MEDS ORDERED: Furosemide 40 mg/4 ml IV VIAL IV ONE (18:36)
[2022-12-07] MEDS ORDERED: Albuterol HFA INHALER 8 gm MDI INH PRN (18:38)
[2022-12-07 18:39] LABS: Magnesium 1.8 mg/dL (1.9-2.7)
[2022-12-07] MEDS ORDERED: Magnesium Sulfate 2 gm BAG 2 GM/50 ML BAG IVPB ONE (19:05)
[2022-12-07] MEDS: Mometasone/Formoter 200/5 MDI INH SCH (19:35)
[2022-12-07] MEDS: CMC:Mirabegron 25 mg ER TAB (NF) PO SCH (21:13)
[2022-12-08 07:00] LABS: ABS Eosinophils 0.1 10^3/uL (0.0-0.5); ABS Lymphocytes 1.2 10^3/uL (1.0-4.8); ABS Monocytes 0.6 10^3/uL (0.0-0.9); ABS Neutrophils 4.7 10^3/uL (1.5-7.6); Eosinophil % 1.9 %; Hematocrit 30.6 % (35-45); Hemoglobin 10.3 g/dL (11.5-14.3); Lymphocyte % 17.7 %; Mean Corpuscular Hemoglobin 28.8 pg (27-33); Mean Corpuscular Hgb Conc 33.7 g/dL (31-36); Mean Corpuscular Volume 85.4 fL (80-97); Mean Platelet Volume 7.9 fL (7.5-11.2); Nucleated Red Blood Cells % 0.1 /100 WBC (0.0-0.4); Platelet Count 147 10^3/uL (150-450); Red Blood Count 3.58 10^6/uL (3.63-4.92); Red Cell Distribution Width 15.4 % (12-17); White Blood Count 6.5 10^3/uL (3.8-11.8)
[2022-12-08] MEDS ORDERED: NS 0.9% 1000 ml BAG 1,000 ML IV ONE (07:00)
[2022-12-08] MEDS: Mometasone/Formoter 200/5 MDI INH SCH ×2 (07:25→19:31)
[2022-12-08 07:34] LABS: Albumin/Globulin Ratio 1.8 (1-3); Calcium 9.1 mg/dL (8.6-10.3); Creatinine, Serum 0.79 mg/dL (0.51-0.95); Globulin 2.2 g/dL (2-4); Magnesium 2.1 mg/dL (1.9-2.7); Potassium 3.7 mmol/L (3.5-5.0); Total Bilirubin 1.4 mg/dL (0.2-1.0); Total Protein 6.2 g/dL (6.4-8.9); eGFR CKD-EPI 75.1 (>60)
[2022-12-08] MEDS ORDERED: Potassium Chloride LIQUID 20 MEQ/15 ML LIQUID PO ONE (08:36)
[2022-12-08 08:59] LABS: INR 1.81 (0.88-1.18)
[2022-12-08] MEDS ORDERED: Warfarin per PHARMACY **NOTE FOLLOW UP SCH (13:00)
[2022-12-08] MEDS ORDERED: Midazolam 5 mg/5 ml VIAL 1 mg/ml 5 ml VIAL (5 mg) ONE (13:01)
[2022-12-08] MEDS ORDERED: fentaNYL 100 mcg/2 ml 50 MCG/ML VIAL ONE (13:01)
[2022-12-08] MEDS ORDERED: Naloxone 0.4 mg VIAL 0.4 mg/ml 1 ml VIAL ONE (13:02)
[2022-12-08] MEDS ORDERED: Flumazenil 0.5 mg/5 ml 0.1 MG/ML 5 ml VIAL ONE (13:02)
[2022-12-08] MEDS ORDERED: Benzocaine/Butamben/Tetracain (CETACAINE - SINGLE USE) 5 gm TOPICAL ONE (13:02)
[2022-12-08] MEDS ORDERED: fentaNYL 100 mcg/2 ml 50 MCG/ML VIAL IV SLOW PU ONE (14:56)
[2022-12-08] MEDS ORDERED: Midazolam 10 mg/10 ml VIAL 1 mg/ml 10 ml VIAL (10 mg) IV SLOW PU ONE (14:56)
[2022-12-08] MEDS ORDERED: dilTIAZem 30 MG TAB PO SCH (16:00)
[2022-12-08] MEDS ORDERED: Warfarin DAILY REMINDER **NOTE FOLLOW UP SCH (17:00)
[2022-12-08] MEDS: dilTIAZem 30 MG TAB PO SCH ×2 (17:49→22:35)
[2022-12-08] MEDS: CMC:Mirabegron 25 mg ER TAB (NF) PO SCH (22:31)
[2022-12-08] MEDS ORDERED: Furosemide 40 mg/4 ml IV VIAL IV SLOW PU ONE (23:00)
[2022-12-09] MEDS: dilTIAZem 30 MG TAB PO SCH ×2 (05:34→12:56)
[2022-12-09 06:35] LABS: ABS Eosinophils 0.1 10^3/uL (0.0-0.5); ABS Lymphocytes 1.1 10^3/uL (1.0-4.8); ABS Monocytes 0.5 10^3/uL (0.0-0.9); ABS Neutrophils 4.3 10^3/uL (1.5-7.6); Eosinophil % 2.1 %; Hematocrit 30.7 % (35-45); Hemoglobin 10.3 g/dL (11.5-14.3); Lymphocyte % 18.3 %; Mean Corpuscular Hemoglobin 28.6 pg (27-33); Mean Corpuscular Hgb Conc 33.4 g/dL (31-36); Mean Corpuscular Volume 85.7 fL (80-97); Mean Platelet Volume 7.9 fL (7.5-11.2); Platelet Count 153 10^3/uL (150-450); Red Blood Count 3.59 10^6/uL (3.63-4.92); Red Cell Distribution Width 15.4 % (12-17); White Blood Count 6.1 10^3/uL (3.8-11.8)
[2022-12-09 06:41] LABS: INR 1.68 (0.88-1.18)
[2022-12-09 06:54] LABS: Calcium 9.1 mg/dL (8.6-10.3); Creatinine, Serum 0.82 mg/dL (0.51-0.95); Magnesium 1.9 mg/dL (1.9-2.7); Potassium 3.8 mmol/L (3.5-5.0); eGFR CKD-EPI 71.8 (>60)
[2022-12-09 07:18] LABS: Ferritin 17.2 ng/mL (11-307)
[2022-12-09] MEDS: Mometasone/Formoter 200/5 MDI INH SCH ×2 (07:31→20:18)
[2022-12-09] MEDS ORDERED: Furosemide 40 mg/4 ml IV VIAL IV SLOW PU ONE (14:52)
[2022-12-09] MEDS ORDERED: Ferric Gluconate IV 250 MG in NS 0.9% 250 ml 200 ML IVPB ONE (15:30)
[2022-12-09] MEDS: CMC:Mirabegron 25 mg ER TAB (NF) PO SCH (21:03)
[2022-12-10 06:33] LABS: ABS Eosinophils 0.1 10^3/uL (0.0-0.5); ABS Monocytes 0.4 10^3/uL (0.0-0.9); ABS Neutrophils 3.8 10^3/uL (1.5-7.6); Eosinophil % 2.7 %; Hematocrit 31.2 % (35-45); Hemoglobin 10.6 g/dL (11.5-14.3); Lymphocyte % 18.1 %; Mean Corpuscular Hemoglobin 28.8 pg (27-33); Mean Corpuscular Volume 84.7 fL (80-97); Mean Platelet Volume 7.4 fL (7.5-11.2); Nucleated Red Blood Cells % 0.1 /100 WBC (0.0-0.4); Platelet Count 156 10^3/uL (150-450); Red Blood Count 3.68 10^6/uL (3.63-4.92); Red Cell Distribution Width 15.5 % (12-17); White Blood Count 5.4 10^3/uL (3.8-11.8)
[2022-12-10 06:42] LABS: INR 1.7 (0.88-1.18)
[2022-12-10 06:49] LABS: Creatinine, Serum 0.73 mg/dL (0.51-0.95); Magnesium 1.9 mg/dL (1.9-2.7); Potassium 3.4 mmol/L (3.5-5.0); eGFR CKD-EPI 82.6 (>60)
[2022-12-10] MEDS: Mometasone/Formoter 200/5 MDI INH SCH (07:53)
[2022-12-10] MEDS ORDERED: Potassium EFFERVES 25 meq TAB PO ONE (08:18)
[2022-12-10] MEDS ORDERED: Furosemide 40 mg/4 ml IV VIAL IV SLOW PU ONE (08:20)
[2022-12-10 14:25] VITALS: BP 128/72
== END 2022-12-10 15:00 | disposition home or self-care (01) | DRG 308 ==
LOC: ED 12:55 → EDHOLD 16:57 → SUATTDRO 16:57 → MEDTELE 20:28
PROVIDERS: ADMIT Internal Medicine; ATTEND Internal Medicine

== ENCOUNTER 2023-05-31 13:04 | Inpatient (IN) ==
[2023-05-31] MEDS ORDERED: Furosemide 40 mg/4 ml IV VIAL IV SLOW PU ONE (15:19)
[2023-05-31 15:34] LABS: ABS Eosinophils 0.1 10^3/uL (0.0-0.5); ABS Lymphocytes 1.1 10^3/uL (1.0-4.8); ABS Monocytes 0.6 10^3/uL (0.0-0.9); ABS Neutrophils 5.3 10^3/uL (1.5-7.6); ABS Nucleated RBC 0.01 10^3/ul; Eosinophil % 1.1 %; Hematocrit 35.5 % (35-45); Lymphocyte % 16.1 %; Mean Corpuscular Hemoglobin 30.5 pg (27-33); Mean Corpuscular Hgb Conc 33.8 g/dL (31-36); Mean Corpuscular Volume 90.2 fL (80-97); Mean Platelet Volume 7.9 fL (7.5-11.2); Nucleated Red Blood Cells % 0.1 %/100WBC (0.0-0.8); Platelet Count 148 10^3/uL (150-450); Red Blood Count 3.94 10^6/uL (3.63-4.92); Red Cell Distribution Width 14.4 % (12-17); White Blood Count 7.1 10^3/uL (3.8-11.8)
[2023-05-31 15:54] LABS: Albumin 4.3 g/dL (3.2-5.2); Albumin/Globulin Ratio 1.7 (1-3); Calcium 9.6 mg/dL (8.6-10.3); Creatinine, Serum 0.78 mg/dL (0.51-0.95); Globulin 2.6 g/dL (2-4); Magnesium 1.9 mg/dL (1.9-2.7); Potassium 4.2 mmol/L (3.5-5.0); Total Protein 6.9 g/dL (6.4-8.9); eGFR CKD-EPI 76.3 (>60)
[2023-05-31 16:15] LABS: TSH Ultra Thyroid Stim Horm 1.72 mcIU/mL (0.34-5.60)
[2023-05-31 16:43] LABS: Activated Partial Thrombo Time 38.6 seconds (26.0-38.0); INR 2.97 (0.83-1.13)
[2023-05-31 16:58] LABS: High Sensitivity Troponin 1 Hr 5 pg/mL (<15)
[2023-05-31] MEDS ORDERED: Digoxin IV 0.5 MG/2 ML AMP (0.25 MG/ML) IV SLOW PU ONE (18:14)
[2023-06-01] MEDS ORDERED: Furosemide 40 mg/4 ml IV VIAL IV SCH ×2 (02:45→02:48)
[2023-06-01] MEDS ORDERED: Albuterol HFA INHALER 8 gm MDI INH PRN (03:06)
[2023-06-01] MEDS: CMCS: Mirabegron 25 mg ER TAB (NF) PO SCH ×2 (04:39→20:40)
[2023-06-01 06:16] LABS: ABS Eosinophils 0.1 10^3/uL (0.0-0.5); ABS Lymphocytes 1.1 10^3/uL (1.0-4.8); ABS Monocytes 0.7 10^3/uL (0.0-0.9); ABS Neutrophils 6.4 10^3/uL (1.5-7.6); Activated Partial Thrombo Time 35.1 seconds (26.0-38.0); Eosinophil % 1.5 %; Hematocrit 36.3 % (35-45); Hemoglobin 12.3 g/dL (11.5-14.3); INR 2.29 (0.83-1.13); Lymphocyte % 13.6 %; Mean Corpuscular Hemoglobin 30.4 pg (27-33); Mean Corpuscular Hgb Conc 33.9 g/dL (31-36); Mean Corpuscular Volume 89.7 fL (80-97); Mean Platelet Volume 7.7 fL (7.5-11.2); Platelet Count 161 10^3/uL (150-450); Red Blood Count 4.04 10^6/uL (3.63-4.92); Red Cell Distribution Width 13.9 % (12-17); White Blood Count 8.4 10^3/uL (3.8-11.8)
[2023-06-01 06:28] LABS: Calcium 9.3 mg/dL (8.6-10.3); Creatinine, Serum 0.85 mg/dL (0.51-0.95); Magnesium 1.8 mg/dL (1.9-2.7); Potassium 3.5 mmol/L (3.5-5.0); eGFR CKD-EPI 68.8 (>60)
[2023-06-01] MEDS: Mometasone/Formoter 200/5 MDI INH SCH ×2 (07:11→20:55)
[2023-06-01] MEDS: Potassium Chlor 10 meq TAB PO SCH ×2 (08:46→20:39)
[2023-06-01] MEDS ORDERED: Potassium Chloride LIQUID 20 MEQ/15 ML LIQUID PO ONE (10:08)
[2023-06-01] MEDS ORDERED: Magnesium Sulfate 2 gm BAG 2 GM/50 ML BAG IVPB ONE (10:08)
[2023-06-01] MEDS ORDERED: Ondansetron 4 mg VIAL 2 MG/ML 2 ml VIAL IV ONE (11:09)
[2023-06-01 12:51] LABS: Ferritin 17.7 ng/mL (11-307)
[2023-06-01] MEDS: Ferric Gluconate IV 250 MG in NS 0.9% 250 ml 200 ML IVPB SCH (14:15)
[2023-06-01] MEDS: Warfarin DAILY REMINDER **NOTE FOLLOW UP SCH (16:35)
[2023-06-01] MEDS ORDERED: Metoprolol Tartrate 5 mg VIAL 5 ml VIAL (1 mg/ml) IV PRN (17:40)
[2023-06-01 18:09] LABS: Urine Appearance Turbid; Urine Bilirubin Negative (Negative); Urine Blood 1+ (Negative); Urine Color Amber; Urine Glucose Negative (Negative); Urine Ketones Negative (Negative); Urine Nitrite Negative (Negative); Urine Protein Negative (Negative); Urine Specific Gravity 1.021 (1.002-1.030); Urine Urobilinogen Negative (Negative)
[2023-06-01 18:16] LABS: Urine Bacteria Absent (Absent); Urine Red Blood Cell 3+(>10/hpf) (Absent); Urine Squamous Epithelial Cell Present (Absent); Urine White Blood Cell 3+(>20/hpf) (Absent)
[2023-06-02] MEDS ORDERED: NS 0.9% 1000 ml BAG 1,000 ML IV ONE (07:00)
[2023-06-02 07:30] LABS: INR 2.92 (0.83-1.13)
[2023-06-02] MEDS ORDERED: Flumazenil 0.5 mg/5 ml 0.1 MG/ML 5 ml VIAL ONE (08:26)
[2023-06-02] MEDS ORDERED: fentaNYL 100 mcg/2 ml 50 MCG/ML VIAL ONE (08:26)
[2023-06-02] MEDS ORDERED: Midazolam 5 mg/5 ml VIAL 1 mg/ml 5 ml VIAL (5 mg) ONE (08:26)
[2023-06-02] MEDS ORDERED: Naloxone 0.4 mg VIAL 0.4 mg/ml 1 ml VIAL ONE (08:26)
[2023-06-02 08:29] LABS: ABS Eosinophils 0.1 10^3/uL (0.0-0.5); ABS Lymphocytes 1.5 10^3/uL (1.0-4.8); ABS Monocytes 0.7 10^3/uL (0.0-0.9); ABS Neutrophils 3.8 10^3/uL (1.5-7.6); Eosinophil % 2.4 %; Hematocrit 40.5 % (35-45); Hemoglobin 13.5 g/dL (11.5-14.3); Lymphocyte % 24.9 %; Mean Corpuscular Hemoglobin 30.3 pg (27-33); Mean Corpuscular Hgb Conc 33.4 g/dL (31-36); Mean Corpuscular Volume 90.9 fL (80-97); Mean Platelet Volume 7.8 fL (7.5-11.2); Nucleated Red Blood Cells % 0.1 %/100WBC (0.0-0.8); Platelet Count 197 10^3/uL (150-450); Red Blood Count 4.46 10^6/uL (3.63-4.92); Red Cell Distribution Width 14.5 % (12-17); White Blood Count 6.2 10^3/uL (3.8-11.8)
[2023-06-02 08:44] LABS: Calcium 9.3 mg/dL (8.6-10.3); Creatinine, Serum 0.87 mg/dL (0.51-0.95); Potassium 4.6 mmol/L (3.5-5.0); eGFR CKD-EPI 66.9 (>60)
[2023-06-02] MEDS ORDERED: fentaNYL 100 mcg/2 ml 50 MCG/ML VIAL IV SLOW PU ONE (09:11)
[2023-06-02] MEDS ORDERED: Flumazenil 0.5 mg/5 ml 0.1 MG/ML 5 ml VIAL IV PRN (09:11)
[2023-06-02] MEDS ORDERED: Midazolam 10 mg/10 ml VIAL 1 mg/ml 10 ml VIAL (10 mg) IV SLOW PU ONE (09:11)
[2023-06-02] MEDS ORDERED: Naloxone 0.4 mg VIAL 0.4 mg/ml 1 ml VIAL IV PUSH PRN (09:11)
[2023-06-02] MEDS: Mometasone/Formoter 200/5 MDI INH SCH ×2 (09:14→20:14)
[2023-06-02] MEDS: Potassium Chlor 10 meq TAB PO SCH ×2 (10:14→22:16)
[2023-06-02] MEDS: Furosemide 40 mg/4 ml IV VIAL IV SCH (10:16)
[2023-06-02] MEDS: Ferric Gluconate IV 250 MG in NS 0.9% 250 ml 200 ML IVPB SCH (10:18)
[2023-06-02] MEDS: Warfarin DAILY REMINDER **NOTE FOLLOW UP SCH (17:18)
[2023-06-02] MEDS ORDERED: Warfarin per PHARMACY **NOTE FOLLOW UP SCH (18:00)
[2023-06-02] MEDS: CMCS: Mirabegron 25 mg ER TAB (NF) PO SCH (22:16)
[2023-06-03 06:58] LABS: INR 2.82 (0.83-1.13)
[2023-06-03] MEDS: Mometasone/Formoter 200/5 MDI INH SCH (07:25)
[2023-06-03] MEDS: Potassium Chlor 10 meq TAB PO SCH (10:38)
[2023-06-03] MEDS: Furosemide 40 mg/4 ml IV VIAL IV SCH (10:39)
[2023-06-03] MEDS: Ferric Gluconate IV 250 MG in NS 0.9% 250 ml 200 ML IVPB SCH (10:44)
[2023-06-03 20:55] VITALS: BP 127/78
== END 2023-06-03 16:25 | disposition home or self-care (01) | DRG 291 ==
LOC: ED 13:04 → EDHOLD 13:04 → SUATTDRO 23:54 → MEDTELE 06-01 02:56
PROVIDERS: ADMIT Internal Medicine; ATTEND Student in an Organized Health Care Education/Training Program
PROC: CARDVER (ICD-10-PCS; 2023-06-02 08:30)